=== PATIENT | female | born 1990 | race Hispanic/Latino ===

== ENCOUNTER 2019-12-11 13:44 | Outpatient (CLI) | payer OTHER ==
--- NOTE | 2019-12-11 14:38 | ULT ---
EXAM: OB ultrasound COMPARISON: None HISTORY: female. Evaluate anatomy and cervical length. TECHNIQUE: Multiplanar grayscale and color Doppler images were obtained in a transabdominal ult rasound. FINDINGS: There is a single live intrauterine with heart rate of 144 bpm. A survey wa s performed which is unremarkable. The head, intracranial structures, heart, stomach, kidneys, umbilical cord, umbilical cord insertion, spine, face, and extremities were evaluated and were unrema rkable. Estimated weight is 358 g. Average age of the fetus based off today's examination is 20 weeks 4 days. BPD 4.89 cm -- 20 weeks 6 days HC 17.81 cm -- 20 weeks 2 days AC 15.86 cm -- 21 weeks 0 days FL 3.20 cm -- 20 weeks 2 days The placenta is anterior in location without focal abnormality. DOMINIQUE is 14.93 cm which is normal. The cervix is normal in length. The inferior tip of the placenta is 1.8 cm from the internal os. There is no evidence of placenta previa. IMPRESSION: 1. Single live intrauterine with estimated age of 20 weeks 4 days. 2. Low-lying placenta
== END 2019-12-11 13:45 | disposition home or self-care (01) ==
LOC: BICULT 13:44
PROVIDERS: ATTEND Family Medicine
DX: Z34.02 Encounter for supervision of normal first pregnancy, second trimester (principal); Z3A.20 20 weeks gestation of pregnancy
CPT/HCPCS: 76805

== ENCOUNTER 2020-04-22 04:01 | Outpatient (CLI) | payer OTHER ==
[2020-04-22 17:42] LABS: SARS-CoV-2 MS2 Positive; SARS-CoV-2 N Gene Negative; SARS-CoV-2 S Gene Negative; SARS-CoV-2 orf1ab Negative
== END 2020-04-22 04:02 | disposition home or self-care (01) ==
LOC: ERS 04:01
PROVIDERS: ATTEND Family Medicine
DX: Z01.812 Encounter for preprocedural laboratory examination (principal); Z11.59 Encounter for screening for other viral diseases
CPT/HCPCS: 87635; U0003

== ENCOUNTER 2020-04-23 10:35 | Inpatient (IN) | payer OTHER ==
[2020-04-23 11:03] VITALS: BMI 29.7
[2020-04-23] MEDS ORDERED: hydrALAZINE 20 MG/ML VIAL SLOW IVP PRN ×3 (11:21→19:05)
[2020-04-23] MEDS ORDERED: Ondansetron PF 4 MG/2 ML Vial IVP PRN ×3 (11:32→19:05)
[2020-04-23] MEDS ORDERED: Promethazine HCl 25 MG/ML VIAL IM PRN ×3 (11:32→19:05)
[2020-04-23] MEDS ORDERED: NS / Oxytocin 40 units/1000ml 1,000 ML IV PRN ×2 (11:32→11:33)
[2020-04-23] MEDS ORDERED: Lidocaine 1% (PF) 30 ML VIAL SC PRN ×2 (11:32→11:33)
[2020-04-23] MEDS ORDERED: Ibuprofen 800 MG TAB PO PRN (11:33)
[2020-04-23] MEDS ORDERED: HYDROcodone/Acetaminophen 5/325 mg Tablet PO PRN (11:33)
[2020-04-23] MEDS ORDERED: Morphine 2 MG/ML SYRINGE SLOW IVP SCH (11:45)
[2020-04-23] MEDS ORDERED: Lactated Ringer's 1,000 ML IV SCH (11:45)
[2020-04-23] MEDS: Morphine 4 MG/ML VIAL IM SCH ×2 (12:19→12:20)
[2020-04-23 12:46] LABS: Hemoglobin 14.7 g/dL (12.0-16.0); Mean Corpuscular Hemoglobin 33.6 pg (27.0-31.0); Mean Corpuscular Volume 98.9 fL (78.0-98.0); Mean Platelet Volume 8.7 fL (7.4-10.4); Platelet Count 271 thou/uL (130-400); RBC Distribution Width 12.2 % (11.5-14.5); Red Blood Cell (RBC) Count 4.38 mill/uL (4.20-5.40); White Blood Cell (WBC) Count 16.9 thou/uL (4.8-10.8)
[2020-04-23 13:25] LABS: Syphilis Antibody Nonreactive (Nonreactive); Syphilis Antibody Index 0.02 S/CO (<1.00 Non-Reactive)
[2020-04-23 13:35] LABS: HBSAg Index 0.16 S/CO (0-0.99); Hep B Surf Ag Non-Reactive S/CO (NonReactive)
[2020-04-23] MEDS ORDERED: NS w/ Oxytocin 10 units 500 ML ONE (13:49)
[2020-04-23] MEDS ORDERED: Fentanyl 4 mcg/Bup 0.1% Cadd 0 ML ONE (14:06)
[2020-04-23] MEDS ORDERED: Fentanyl 4 mcg/Bup 0.1% Cadd 100 ML ONE (14:08)
[2020-04-23] MEDS ORDERED: EPHEDRINE 25 MG/5 ML SYRINGE SLOW IVP PRN (15:03)
[2020-04-23] MEDS ORDERED: Lactated Ringer's 500 ML IV PRN (15:03)
[2020-04-23] MEDS ORDERED: diphenhydrAMINE 50 MG/ML VIAL IVP PRN (15:03)
[2020-04-23] MEDS ORDERED: Naloxone HCl 0.4 mg/ml Vial IVP PRN ×2 (15:03)
[2020-04-23] MEDS ORDERED: Acetaminophen 325 MG TAB PO PRN (15:03)
[2020-04-23] MEDS ORDERED: Fentanyl 4 mcg/Bupivacaine 0.1% Cassette 100 ML EPIDURAL SCH (15:15)
[2020-04-23] MEDS ORDERED: Communication Order-Pharmacy FS SCH (15:15)
[2020-04-23] MEDS: Lactated Ringer's 1,000 ML IV SCH (15:22)
[2020-04-23] MEDS ORDERED: Lidocaine 1% (PF) 30 ML VIAL ONE (16:39)
[2020-04-23] MEDS ORDERED: NS / Oxytocin 40 units/1000ml 1,000 ML ONE (16:39)
[2020-04-23] MEDS ORDERED: diphenhydrAMINE 25 MG CAP PO PRN (19:05)
[2020-04-23] MEDS ORDERED: Milk Of Magnesia 30 ML UDCUP PO PRN (19:05)
[2020-04-23] MEDS ORDERED: Benzocaine-Menthol 82.5 ML CAN TOP PRN (19:05)
[2020-04-23] MEDS ORDERED: Adacel (T-DAP) 0.5 ML SYRINGE IM ONE (19:05)
[2020-04-23] MEDS ORDERED: Lanolin Ointment 7 GM TUBE TOP PRN (19:05)
[2020-04-23] MEDS ORDERED: Bisacodyl 10 MG SUPP PR PRN (19:05)
[2020-04-23] MEDS ORDERED: NS / Oxytocin 40 units/1000ml 1,000 ML IV SCH (19:05)
[2020-04-23] MEDS: Ibuprofen 800 MG TAB PO SCH (19:41)
[2020-04-23] MEDS: Docusate Calcium (SURFAK) 240 MG CAP PO SCH (21:44)
[2020-04-24] MEDS: HYDROcodone/Acetaminophen 5/325 mg Tablet PO PRN ×5 (02:45→22:38)
[2020-04-24] MEDS: Ibuprofen 800 MG TAB PO SCH ×3 (05:26→21:11)
[2020-04-24 05:57] LABS: Hemoglobin 12.5 g/dL (12.0-16.0); Mean Corpuscular HGB CONC 32.8 g/dL (32.0-36.0); Mean Corpuscular Hemoglobin 32.8 pg (27.0-31.0); Mean Corpuscular Volume 99.9 fL (78.0-98.0); Platelet Count 228 thou/uL (130-400); Red Blood Cell (RBC) Count 3.81 mill/uL (4.20-5.40); White Blood Cell (WBC) Count 15.7 thou/uL (4.8-10.8)
[2020-04-24] MEDS: Prenatal Vitamin 1 TAB PO SCH (08:34)
[2020-04-24] MEDS: Docusate Calcium (SURFAK) 240 MG CAP PO SCH ×2 (08:34→21:11)
[2020-04-24] MEDS: Ferrous Sulfate 325 MG TAB PO SCH ×2 (08:36→17:07)
[2020-04-25] MEDS: Ibuprofen 800 MG TAB PO SCH (06:04)
[2020-04-25 08:01] VITALS: BP 127/71; TEMP 98.5
[2020-04-25] MEDS: HYDROcodone/Acetaminophen 5/325 mg Tablet PO PRN (08:03)
[2020-04-25] MEDS: Docusate Calcium (SURFAK) 240 MG CAP PO SCH (08:03)
[2020-04-25] MEDS: Prenatal Vitamin 1 TAB PO SCH (08:03)
[2020-04-25] MEDS: Ferrous Sulfate 325 MG TAB PO SCH (08:03)
== END 2020-04-25 11:00 | disposition home or self-care (01) | DRG 807 ==
LOC: L&D/OP 10:35 → L&D 12:34 → 3SW 19:46
PROVIDERS: ADMIT Family Medicine; ATTEND Family Medicine
PROC: 10E0XZZ Delivery of Products of Conception, External Approach (ICD-10-PCS; principal; 2020-04-23)
PROC: 10907ZC Drainage of Amniotic Fluid, Therapeutic from Products of Conception, Via Natural or Artificial Opening (ICD-10-PCS; 2020-04-23)
PROC: 0UQMXZZ Repair Vulva, External Approach (ICD-10-PCS; 2020-04-23)
DX: O70.0 First degree perineal laceration during delivery (principal); Z37.0 Single live birth; Z3A.40 40 weeks gestation of pregnancy
CPT/HCPCS: 36415; 51702; 85027; 86780; 86850; 86900; 86901; 87340; 99285; J2001; J2270; J2590